=== PATIENT | male | born 1970 ===

== ENCOUNTER 2023-05-19 13:19 | Outpatient (AMB) | payer OTHER, SELFPAY ==
--- NOTE | 2023-05-19 13:36 | MHC.OFFVIS ---
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 The patient is a 52-year-old gentleman with a history of tobacco dependency and also alcohol dependency who apparently has been developing worsening cough and also some shortness of breath. He is here with his significant other. she is concerned about his overall health. He has been having worsening coughing and also chest congestion. Lyem-ac-vcxzoiad severity. Also has noticed that he is getting winded going up a flight of stairs. Mild in severity. He does not have any inhalers at this time. The patient is already being evaluated for gynecomastia and some breast anomaly. Currently following closely with specialist for that. We did talk about smoking. The patient does have the issue with the association about alcohol and cigarettes. The patient is considering quitting. The best option that he has is to try Chantix. I consult the family about the risk of depression and suicidal ideation with the medicine. They understand that they noticed any worsening depression symptoms they have to stop the medicine immediately. He is also good candidate for the lung cancer screening program. Will hold off on any inhalers at this time as the patient is not interested. If he changes his mind he can always call and I will send him at least a short-acting beta agonist. The patient will be referred to the lung cancer screening program will focus on tobacco cessation and follow-up in 3-4 months. [facility] Medical History (Updated 05/23/23 @ 20:37 by Andreas Chun MD) Chronic cough Dyspnea Tobacco abuse Social History (Updated 05/19/23 @ 13:45 by KUNAL Reece) Patient Tobacco Use Status: Current everyday Tobacco user Tobacco use type: Cigarette Cigarette Packs Per Day: 1 Cigarettes Per Day: 3 Years Smoked: 30 Years Review of Systems Const Denies fever(s) and Denies weight loss Eyes Denies change in vision ENT Denies change in voice Card Denies chest pain and Reports dyspnea on exertion Resp Reports cough, Reports dyspnea on exertion and Denies wheezing GI Denies abdominal pain Musc Reports no additional complaints Skin/Breast Reports breast pain and Reports breast mass Neuro Reports no additional complaints Socrates/Lymph Denies lymphadenopathy Aller/Immun Denies wheezing Physical Exam Vital Signs: Last Vital Signs Pulse 86 05/19/23 13:41 BP 136/70 05/19/23 13:41 Pulse Ox 97 05/19/23 13:41 Oxygen Delivery Method Room Air 05/19/23 13:41 BMI result Body Mass Index 22.0 Const General: comfortable HEENT Head: Yes normocephalic Neck Neck: Yes supple Chest Chest palpation & inspection: normal inspection of the chest Resp Effort & Inspection: normal respiratory effort Auscultation: no rales, no rhonchi, no wheezes and diminished lung sounds Cardio Heart sounds: S1 normal heart sound present and S2 normal heart sound present GI Palpation (GI): Soft to palpation Skin General skin exam: no rashes or lesions noted Extrem General: Yes clubbing, No cyanosis and No edema Assessment & Plan Assessment & Plan (1) Chronic cough: Code(s): R05.3 - Chronic cough (2) Tobacco abuse: Code(s): Z72.0 - Tobacco use (3) Dyspnea: Code(s): R06.00 - Dyspnea, unspecified Qualifiers: Dyspnea type: dyspnea on exertion Qualified Code(s): R06.09 - Other forms of dyspnea Plan consider KRISS inhaler LDCT screening start chantix, monitor for depression PFTs F/U 2-3 months Orders: Orders PFT pulmonary function test Today R06.09 - Other forms of dyspnea Referrals Thoracic Surgery Referral R05.3 - Chronic cough, Z72.0 - Tobacco use Medications: New varenicline (Chantix Starting Month Box) PO PER PKG DIR 42 ea 0RF Coding Level of Care Code New Pt Level 4 (31421) Diagnoses Chronic cough R05.3 Tobacco abuse Z72.0 Dyspnea R06.09 Dyspnea type: dyspnea on exertion Time Spent (min) 35
[2023-05-19 13:41] VITALS: BP 136/70; PULSE 86; O2SAT 97; BMI 22.0
== END 2023-05-19 14:07 | disposition home or self-care (01) ==
PROVIDERS: PCP Internal Medicine; Visit Provider Hospitalist
DX: R05.3 Chronic cough (principal); Z72.0 Tobacco use; R06.09 Other forms of dyspnea
CPT/HCPCS: 99204

== ENCOUNTER → 2023-05-19 13:19 | Outpatient (BNVA) | payer OTHER, SELFPAY | PROVIDERS: PCP Internal Medicine; Visit Provider Hospitalist | DX: R05.3 Chronic cough (principal); R06.09 Other forms of dyspnea; Z72.0 Tobacco use | CPT/HCPCS: 99202 ==

== ENCOUNTER 2023-06-10 13:13 | Outpatient (REF) | payer OTHER, SELFPAY ==
--- NOTE | 2023-06-10 14:02 | PFT_ITS ---
FLOWS: 1. FEV1 76% of predicted at 2.70 L. 2. FVC 79% of predicted at 3.58 L. 3. FEV1 to FVC ratio of 0.75. 4. No bronchodilator response. LUNG VOLUMES: 1. Total lung capacity 89% of predicted at 5.91 L. 2. Residual volume 171% of predicted at 3.49 L. 3. Slow vital capacity 53% of predicted at 2.41 L. 4. Expiratory reserve volume 43% of predicted at 0.44 L. 5. Diffusion capacity is mildly decreased, diffusion capacity corrects to normal after adjustment for alveloar ventilation. IMPRESSION: No obstructive or restrictive ventilatory defect. No bronchodilator response. Increased residual volume suggests air trapping. Decreased diffusion capacity suggest emphysema. MD WINSOME Forman/MODL / [id number]
== END 2023-06-10 13:14 | disposition home or self-care (01) ==
LOC: HO.RESP 13:13
PROVIDERS: PCP Internal Medicine; Visit Provider Hospitalist
DX: R06.09 Other forms of dyspnea (principal)
CPT/HCPCS: 94010; 94727; 94729

== ENCOUNTER → 2023-06-10 14:02 | Outpatient (BNV) | payer OTHER, SELFPAY | PROVIDERS: PCP Internal Medicine; Visit Provider Internal Medicine Pulmonary Disease | DX: R06.09 Other forms of dyspnea (principal) | CPT/HCPCS: 94060; 94727; 94729 ==

== ENCOUNTER 2023-10-25 13:59 | Outpatient (AMB) | payer OTHER, SELFPAY ==
--- NOTE | 2023-10-25 14:04 | MHC.OFFVIS ---
Intake Vital Signs 10/25/23 14:06 Height 5 ft 8 in Weight 148 lb BMI 22.5 BP 126/70 Blood Pressure Location Rt brachial Position Sitting Pulse 80 Pulse Source Pulse Oximeter Pulse Oximetry (%) 96 Oxygen Delivery Method Room Air Intake Visit Reasons: dyspnea Investor Required: No Allergies No Known Allergies Allergy (Verified 10/25/23 14:08) HPI HPI Comments History of Present Illness Details The patient is a 53-year-old gentleman with a history of tobacco dependency and also alcohol dependency who apparently has been developing worsening cough and also some shortness of breath. He is here with his significant other. she is concerned about his overall health. He has been having worsening coughing and also chest congestion. Aphk-be-vvlbtzyo severity. Also has noticed that he is getting winded going up a flight of stairs. Mild in severity. He does not have any inhalers at this time. The patient is already being evaluated for gynecomastia and some breast anomaly. Currently following closely with specialist for that. We did talk about smoking. The patient does have the issue with the association about alcohol and cigarettes. The patient is considering quitting. The best option that he has is to try Chantix. I consult the family about the risk of depression and suicidal ideation with the medicine. They understand that they noticed any worsening depression symptoms they have to stop the medicine immediately. He is also good candidate for the lung cancer screening program. Will hold off on any inhalers at this time as the patient is not interested. If he changes his mind he can always call and I will send him at least a short-acting beta agonist. The patient will be referred to the lung cancer screening program will focus on tobacco cessation and follow-up in 3-4 months. 10/25/2023 the patient is here for a pulmonary follow-up visit. Overall the patient has been doing about the same. He does have a cough. Moderate severity. The cough tends to be nonproductive in nature. He denies taking any medication for. Does state sometimes he has a very runny nose and sometimes is wondering if it has a postnasal drip. Will go ahead and send him any ipratropium nasal spray to help him with the vasomotor rhinitis. In the meantime the patient is still smoking. He did not want to take Chantix because of potential risk for seizures. He has never had a seizure but there is a family history. He will try cutting down this time. We did review his pulmonary function studies. He does not have any obstruction although his FVC is down to 79%. In addition to that his DLCO is decreased to 64% is pretty diminished. I do believe he probably has component of emphysema. He is scheduled to have his lung cancer screening CT scan in the beginning of November. Otherwise patient is doing fairly well he is going to work on cutting down this smoking. If his cough is worse he can let me know he will try the nasal spray for now and will follow-up sometime in the fall 2023. If he has any issues prior to that he will call for an earlier assessment. [facility] Medical History (Updated 07/18/23 @ 11:22 by Kiana Rivers PA-C) Nocturia Depression with anxiety Nicotine dependence, cigarettes, uncomplicated Dyspnea Chronic cough Family History (Updated 07/18/23 @ 11:23 by Kiana Rivers PA-C) Mother Melanoma metastatic to brain Father No problems noted. Sister Type 2 diabetes mellitus Social History (Updated 05/19/23 @ 13:45 by UKNAL Reece) Patient Tobacco Use Status: Current everyday Tobacco user Tobacco use type: Cigarette Cigarette Packs Per Day: 1 Cigarettes Per Day: 3 Years Smoked: 30 Years Review of Systems Const Denies fever(s) and Denies weight loss Eyes Denies change in vision ENT Denies change in voice Card Denies chest pain and Reports dyspnea on exertion Resp Reports cough, Reports dyspnea on exertion and Denies wheezing GI Denies abdominal pain Musc Reports no additional complaints Skin/Breast Reports breast pain and Reports breast mass Neuro Reports no additional complaints Socrates/Lymph Denies lymphadenopathy Aller/Immun Denies wheezing Physical Exam Vital Signs: Last Vital Signs Pulse 80 10/25/23 14:06 BP 126/70 10/25/23 14:06 Pulse Ox 96 10/25/23 14:06 Oxygen Delivery Method Room Air 10/25/23 14:06 BMI result Body Mass Index 22.5 Const General: comfortable HEENT Head: Yes normocephalic Neck Neck: Yes supple Chest Chest palpation & inspection: normal inspection of the chest Resp Effort & Inspection: normal respiratory effort and prolonged expiratory phase Auscultation: no rales, no rhonchi, no wheezes and diminished lung sounds Cardio Heart sounds: S1 normal heart sound present and S2 normal heart sound present GI Palpation (GI): Soft to palpation Skin General skin exam: no rashes or lesions noted Extrem General: Yes clubbing, No cyanosis and No edema Assessment & Plan Assessment & Plan (1) Chronic cough: Code(s): R05.3 - Chronic cough (2) Tobacco abuse: Code(s): Z72.0 - Tobacco use (3) Dyspnea: Code(s): R06.00 - Dyspnea, unspecified Qualifiers: Dyspnea type: dyspnea on exertion Qualified Code(s): R06.09 - Other forms of dyspnea Plan consider KRISS inhaler LDCT screening 11/18/23 did not start chantix due to concerns for seizures. Will try to cut down ipratropium nasal spray as needed F/U 8-10 months Medications: New ipratropium bromide administer into each nostril 2 sprays intranasal TID PRN 15 mL 6RF allergy symptoms Coding Level of Care Code Est Pt Level 4 (31216) Diagnoses Chronic cough R05.3 Tobacco abuse Z72.0 Dyspnea on exertion R06.09 Dyspnea type: dyspnea on exertion Time Spent (min) 17
[2023-10-25 14:06] VITALS: BP 126/70; PULSE 80; O2SAT 96; BMI 22.5
== END 2023-10-25 14:24 | disposition home or self-care (01) ==
PROVIDERS: PCP Internal Medicine; Visit Provider Hospitalist
DX: R05.3 Chronic cough (principal); Z72.0 Tobacco use; R06.09 Other forms of dyspnea
CPT/HCPCS: 99214

== ENCOUNTER → 2023-10-25 13:59 | Outpatient (BNVA) | payer OTHER, SELFPAY | PROVIDERS: PCP Internal Medicine; Visit Provider Hospitalist | DX: R05.3 Chronic cough (principal); R06.09 Other forms of dyspnea; F17.210 Nicotine dependence, cigarettes, uncomplicated | CPT/HCPCS: 99212 ==

== ENCOUNTER 2023-11-18 11:07 | Outpatient (AMB) | payer OTHER, SELFPAY ==
--- NOTE | 2023-11-18 11:16 | MHC.OFFVIS ---
Intake Intake Visit Reasons: LDCT SD Allergies No Known Allergies Allergy (Verified 10/25/23 14:08) HPI HPI Comments History of Present Illness Details Shamika is a pleasant 53 year old male, current 1ppd smoker with a 38 PYH. Patient has been smoking since age 15 for 38 years at 1 ppd. Denies marijuana use. Denies exposure to chemicals or substances like asbestos. Denies second hand smoke exposure. Denies known family history of lung cancer. Denies personal history of cancers. Denies chest CT in last year. Denies recent travel outside the [place]. Denies testing positive for COVID. Admits receiving COVID Vaccine. Denies fever, chills, chest pain, new cough, hemoptysis or unintentional weight loss. Lung Cancer Screening Questionnaire reviewed with patient by provider. Shared Decision Making Completed. Discussed in detail with patient, the risk versus benefit of LDCT screening. Patient in agreement of proceeding with scan. [facility] Medical History (Updated 07/18/23 @ 11:22 by Kiana Rivers PA-C) Nocturia Depression with anxiety Nicotine dependence, cigarettes, uncomplicated Dyspnea Chronic cough Family History (Updated 07/18/23 @ 11:23 by Kiana Rivers PA-C) Mother Melanoma metastatic to brain Father No problems noted. Sister Type 2 diabetes mellitus Social History (Updated 05/19/23 @ 13:45 by KUNAL Reece) Patient Tobacco Use Status: Current everyday Tobacco user Tobacco use type: Cigarette Cigarette Packs Per Day: 1 Cigarettes Per Day: 3 Years Smoked: 30 Years Assessment & Plan Assessment & Plan (1) Nicotine dependence, cigarettes, uncomplicated: Code(s): F17.210 - Nicotine dependence, cigarettes, uncomplicated Plan Shared decision-making visit completed today in office. This patient meets criteria for LDCT for lung cancer screening purposes and is asymptomatic. Offered smoking cessation. Patient has been scheduled for a low dose chest CT for screening purposes at [facility]. We discussed how the results will be obtained depending on CT findings. RADS 1 and RADS 2 will receive a letter with results and will follow up for annual LDCT. Patient informed they will be contacted at later date to schedule upcoming LDCT scan. RADS 3 and RADS 4 will receive a telephone call, or an office visit after reviewing case at our Lung Cancer Conference to determine when the next LDCT will be scheduled or further interventions that may be needed. Discussed importance of screening program and compliance with yearly LDCT scan as scheduled. Risks, benefits, and alternatives were discussed in detail and patient agrees to proceed. Risks discussed include but are not limited to: radiation exposure and possibility of additional intervention for benign disease. Benefits include detection of lung cancer at an early stage. A copy of today's visit and LDCT results will be sent to patient's PCP. Incidental findings on LDCT are PCP's responsibility. If there are incidental findings, our office will ensure that PCP office is aware of these findings. All questions were answered and patient is in agreement of plan. Coding Level of Care Code Lung Cancer Screening G0296 Diagnoses Nicotine dependence, cigarettes, uncomplicated F17.210
== END 2023-11-18 13:11 | disposition home or self-care (01) ==
PROVIDERS: PCP Internal Medicine; Referring Provider Hospitalist; Visit Provider Nurse Practitioner Family
DX: F17.210 Nicotine dependence, cigarettes, uncomplicated (principal)
CPT/HCPCS: G0296

== ENCOUNTER 2023-11-18 11:31 | Outpatient (REF) | payer OTHER, SELFPAY ==
--- NOTE | ~2023-11-18 | CT_ITS ---
EXAMINATION: CT CHEST SCREENING CLINICAL INFORMATION: Nicotine dependence. COMPARISON: None available. TECHNIQUE: Multidetector volumetric CT imaging of the chest is performed without contrast using low dose technique. Additional 2D coronal and sagittal reformatted images and axial 3D maximum intensity projection (MIP) images are generated on the CT workstation. This CT examination was performed using dose optimization techniques as appropriate, variously including the following: *Automated exposure control *Adjustment of mA and/or kV according to patient size (this includes techniques or standardized protocols for targeted exams where dose is matched to indication/reason for exam; i.e. extremities or head) *Use of iterative reconstruction technique DLP: 41 mGy-cm FINDINGS: LUNGS: Some small pulmonary nodules are present, none larger than 4 mm. As an example: 4 mm lingula (5:307) 4 mm left lower lobe (5:354) 4 mm right lower lobe (5:364). The lungs are otherwise clear with no evidence of inflammation or worrisome nodules. MEDIASTINUM: The mediastinum is normal. CORONARY ARTERY CALCIFICATION: Moderate. PLEURA: There is no pleural effusion. No pleural mass or thickening. AXILLA: No lymphadenopathy. UPPER ABDOMEN: Liver attenuation is decreased compared to the spleen consistent with hepatic steatosis. No other abnormality is seen in the upper abdomen. OSSEOUS STRUCTURES: Unremarkable. CT/CT lung screening IMPRESSION: Small pulmonary nodules, the largest 4 mm. ASSESSMENT: Lung-RADS category 2: Benign. RECOMMENDATION: Routine annual low-dose CT screening in 12 months.
== END 2023-11-18 11:32 | disposition home or self-care (01) ==
LOC: HO.CT 11:31
PROVIDERS: PCP Internal Medicine; Visit Provider Physician Assistant Medical
DX: Z12.2 Encounter for screening for malignant neoplasm of respiratory organs (principal); F17.210 Nicotine dependence, cigarettes, uncomplicated
CPT/HCPCS: 71271; G0296